=== PATIENT | male | born 1950 | race Caucasian/White ===

== ENCOUNTER → 2016-11-12 | Outpatient (CLI) | payer MEDICARE, OTHER ==
[~2016-11-12] MED LIST: ALPRAZOLAM; AMBIEN 10MG10 MG PO; ASPIRIN E.C. 8181 MG PO; ATORVASTATIN PO; COREG 6.256.25 MG/TA PO; DIOVAN PO; DIOVAN320 MG PO; HCTZ; LIPITOR 80MG80 MG PO; MULTIVITAMIN1 CTB PO; NORVASC 10MG10 MG PO; WELLBUTRIN PO; XANAX 0.5MG0.5 MG PO
== END ==
LOC: COL.RAD 08:17
DX: Z13.6 Encounter for screening for cardiovascular disorders (principal)

== ENCOUNTER → 2017-08-28 | Outpatient (CLI) | payer MEDICARE, OTHER | LOC: COL.VAS 08:47 | DX: R09.89 Other specified symptoms and signs involving the circulatory and respiratory systems (principal) ==

== ENCOUNTER 2023-07-25 10:13 | Emergency (ER) | payer MEDICARE, OTHER ==
[~2023-07-25] VITALS: Ht 15.2 cm; Wt 77.3 kg
[~2023-07-25 10:13] MED LIST changes: +Atropine 1 MG/10 ML SYRINGE IV SCH
[2023-07-25] MEDS ORDERED: Succinylcholine PF 100 MG/5 ML SYRINGE/POLY AMP IV SCH (10:21)
[2023-07-25] MEDS ORDERED: NS 1,000 ML IV ONE (10:30)
[2023-07-25] MEDS ORDERED: Glucagon 1 MG VIAL IV ONE (10:30)
[2023-07-25 10:36] LABS: BASO # 0.1 K/mm3 (0.0-0.2); BASO % 0.7 % (0.0-2.0); EOS # 0.1 K/mm3 (0.0-0.7); EOS % 0.7 % (0.0-4.0); GRAN # 6.9 K/mm3 (1.4-6.5); GRAN % 76.4 % (42.2-75.2); HEMATOCRIT 41.7 % (42.0-52.0); HEMOGLOBIN 14.2 g/dl (13.5-18.0); LYMPH # 1.4 K/mm3 (1.2-3.4); LYMPH % 15.5 % (20.0-51.0); MEAN CELL VOLUME 95 fl (80.0-100.0); MEAN CORPUSCULAR HEMOGLOBIN 32 pg (27-31); MEAN CORPUSCULAR HGB CONC 34 g/dl (33.0-37.0); MEAN PLATELET VOLUME 9.7 fl (7.4-10.4); MONO # 0.6 K/mm3 (0.1-0.6); MONO % 6.1 % (1.7-9.3); PLATELET COUNT 202 K/mm3 (130-400); RED BLOOD COUNT 4.39 M/mm3 (4.20-5.60); REDCELL DISTRIBUTION WIDTH-CV 11.9 % (11.5-14.5)
[2023-07-25] MEDS ORDERED: NS 1,000 ML IV SCH ×2 (10:39→11:04)
[2023-07-25 10:41] LABS: INR 1.1 (0.8-3.0); PROTHROMBIN TIME 12.5 SECONDS (9.7-12.8)
[2023-07-25] MEDS ORDERED: Cefepime 2 G in Water For Injection,Sterile 20 ML IV ONE (10:45)
[2023-07-25 10:49] LABS: ALBUMIN 3.3 gm/dL (3.4-4.8); BILIRUBIN,TOTAL 0.9 mg/dL (0.2-1.2); C-REACTIVE PROTEIN 0.03 mg/dL (0.00-0.50); CALCIUM 9.3 mg/dL (8.4-10.2); CREATININE, serum 1.58 mg/dL (0.72-1.25); POTASSIUM 4.3 mmol/L (3.5-4.5); TOTAL PROTEIN 6.4 gm/dL (6.2-8.1)
[2023-07-25 10:55] LABS: TROPONIN-I 0.012 ng/mL (0.00-0.033)
[2023-07-25 11:04] VITALS: TEMP 95.5
[2023-07-25] MEDS ORDERED: EPINEPHrine 1 MG/10 ML (1:10,000) SYRINGE IV SCH (11:07)
[2023-07-25 11:34] LABS: COLLECTION METHOD CATHETER
[2023-07-25] MEDS ORDERED: DOPamine/Dextrose 5%-Water 250 ML IV SCH (11:45)
[2023-07-25] MEDS ORDERED: NS IV SCH (11:45)
[2023-07-25] MEDS ORDERED: FENTANYL IV SCH (11:45)
[2023-07-25] MEDS ORDERED: VASOPRESSIN IV SCH (11:45)
[2023-07-25] MEDS ORDERED: Midazolam 2 MG/2 ML VIAL IV SCH (11:46)
[2023-07-25 11:50] LABS: URINE APPEARANCE Cloudy (CLEAR/HAZY)
[2023-07-25 11:51] LABS: PH 5.5 (5.0-8.5); SQUAMOUS EPITHELIAL 0-2 /hpf (0-10); URINE BLOOD 2+ (NEGATIVE); URINE COLOR YELLOW (YELLOW); URINE GLUCOSE Negative (NEGATIVE); URINE KETONE Negative (NEGATIVE); URINE NITRATE Negative (NEGATIVE); URINE PROTEIN(semi-quant) Negative (BEGATIVE); URINE UROBILINOGEN 0.2 E.U/dL (0.2-1.0)
[2023-07-25 14:27] VITALS: BP 148/129; PULSE 84
--- NOTE | 2023-07-25 14:32 | NUR ---
Data: Package Delivery Room Service Runner contacted [employer]. Patient was a [employer] and . [employer] contacted to support Patient's Family. Assessment: Patient's Mother is grieving. Requested her own Patient Biller. Plan of Care: Security Police contacted Patient's Mother's Patient Biller from the [facility]. Family was leaving the hospital by the time the Patient Biller was reached. The Patient Biller will visit Patient's Mother at her home. Family thanked [employer] Police for contacting their Patient Biller.
== END 2023-07-25 12:00 | disposition expired ==
LOC: COL.ER 10:13
PROVIDERS: Nurse Practitioner
DX: I95.9 Hypotension, unspecified (principal); R00.1 Bradycardia, unspecified
CPT/HCPCS: A4314; J0171; J0330; J0461; J0692; J1265; J1610; J2250; J2598; J3010; J7030; J7060